=== PATIENT | female | born 1935 | race African-American/Black ===

== ENCOUNTER 2016-09-06 09:02 | Emergency (ER) | payer MEDICARE, MEDICAID ==
[~2016-09-06] VITALS: Ht 175.3 cm; Wt 56.7 kg
[~2016-09-06 09:02] MED LIST: ASPI-1035 PO; ATEN-42 PO
[2016-09-06 09:07] VITALS: BP 146/79
[2016-09-06] MEDS ORDERED: BACITRACIN ZINC OINT UDPKT TOP ONE (10:00)
== END 2016-09-06 11:00 | disposition home or self-care (01) ==
LOC: ER 09:03
DX: S81.811A Laceration without foreign body, right lower leg, initial encounter (principal); Z88.0 Allergy status to penicillin; Z79.82 Long term (current) use of aspirin; W22.8XXA Striking against or struck by other objects, initial encounter; Y93.89 Activity, other specified; Y92.89 Other specified places as the place of occurrence of the external cause; Y99.8 Other external cause status
CPT/HCPCS: 12002; 99283

== ENCOUNTER 2021-09-02 22:45 | Inpatient (IN) | payer MEDICARE, MEDICAID ==
[~2021-09-02] VITALS: Ht 175.3 cm; Wt 49.0 kg
[~2021-09-02 22:45] MED LIST changes: +AMLO10TA80 PO; -ASPI-1035 PO; +ASPI-1497 PO; +ATOR10TA PO; +CLOP75TA33 PO; +HYDR12.529 PO; +LINA5TAB PO; +METF-414 PO; +METO-396 PO; +PREG50CA PO; +SIMV-46 PO
[2021-09-02] MEDS ORDERED: SODIUM CHLORIDE 0.9% 1,000 ML IV ONE (23:15)
[2021-09-02 23:42] LABS: BASOPHILS % 0.3 % (0.0-2.0); EOSINOPHILS % 0.9 % (0.0-5.0); HEMATOCRIT. 36.7 % (36.0-48.0); HEMOGLOBIN. 11.8 g/dL (12.0-16.0); LYMPHOCYTES % 9.3 % (20.0-50.0); MEAN CORPUSCULAR HEMOGLOBIN 29.3 pg (28.0-32.0); MEAN CORPUSCULAR VOLUME 91.1 fL (81.0-99.0); MEAN PLATELET VOLUME 9.5 fl (7.4-10.4); NEUTROPHILS % 78.5 % (40.0-76.0); PLATELET 170 x1000/uL (130-400); RED BLOOD CELL COUNT 4.03 mill/uL (4.2-5.4); RED CELL DISTRIBUTION WIDTH 13.1 % (11.6-14.6)
[2021-09-02 23:50] LABS: CHLORIDE 102 mEq/L (98-107)
[2021-09-03 03:09] LABS: CLARITY URINE CLOUDY (CLEAR); COLOR URINE YELLOW (YELLOW); KETONES URINE TRACE (NEGATIVE); LEUKOCYTE ESTERASE URINE 2+ (NEGATIVE); NITRITE URINE NEGATIVE (NEGATIVE); OCCULT BLOOD URINE 2+ (NEGATIVE); PH URINE 5.5 (4.5-8.0); PROTEIN URINE 1+ (NEGATIVE); SPECIFIC GRAVITY URINE 1.017 (1.005-1.030)
[2021-09-03] MEDS ORDERED: DOCUSATE SODIUM 100MG CAPSULE PO PRN (07:30)
[2021-09-03] MEDS ORDERED: GUAIFENESIN 200MG/10ML SUGAR FREE UDC PO PRN (07:30)
[2021-09-03] MEDS ORDERED: KETOROLAC 15MG/ML VIAL IV PRN (07:30)
[2021-09-03] MEDS ORDERED: ACETAMINOPHEN 325MG TABLET PO PRN ×2 (07:30)
[2021-09-03] MEDS ORDERED: ENOXAPARIN 40MG/0.4ML SYR SUBCUT SCH (07:30)
[2021-09-03] MEDS ORDERED: ONDANSETRON HCL 4MG/2ML INJ IV PRN (07:30)
[2021-09-03] MEDS ORDERED: MAGNESIUM/ALUMINUM HYDROXIDE/SIMETHICONE 30ML UDC PO PRN (07:30)
[2021-09-03] MEDS ORDERED: NITROGLYCERIN 0.4MG TABLET SL SL PRN (07:30)
[2021-09-03] MEDS ORDERED: CLONIDINE 0.1MG TABLET PO PRN (07:30)
[2021-09-03] MEDS ORDERED: IPRATROPIUM/ALBUTEROL 0.5-3(2.5)MG/3ML NEB NEB PRN (07:30)
[2021-09-03 08:09] LABS: T4 FREE 1.12 ng/dL (0.76-1.46)
[2021-09-03 08:19] LABS: FOLIC ACID (FOLATE) SERUM 16.7 ng/mL (>5.38)
[2021-09-03] MEDS: CHOLECALCIFEROL (D3) 1000 UNIT TABLET PO SCH (09:00)
[2021-09-03] MEDS ORDERED: CEFTRIAXONE 1 G PREMIX 50 ML IV SCH (09:00)
[2021-09-03] MEDS ORDERED: ENOXAPARIN 30MG/0.3ML SYR SUBCUT SCH (09:00)
[2021-09-03 10:00] VITALS: BP 110/60
[2021-09-03 10:41] VITALS: BP 110/60
[2021-09-03 11:30] VITALS: BP 117/69
[2021-09-03] MEDS: ZINC SULFATE 220 MG ( 50 ) CAPSULE PO SCH (12:14)
[2021-09-03] MEDS: CLOPIDOGREL 75MG TABLET PO SCH (12:14)
[2021-09-03] MEDS: FAMOTIDINE 20MG TABLET PO SCH ×2 (12:14→22:10)
[2021-09-03] MEDS: ASCORBIC ACID 500 MG TABLET PO SCH ×2 (12:14→22:10)
[2021-09-03] MEDS ORDERED: NON FORMULARY PATIENT HOME MED XX SCH ×2 (12:45)
[2021-09-03] MEDS: AMLODIPINE 5MG TABLET PO SCH (12:45)
[2021-09-03] MEDS ORDERED: ASPIRIN 81MG TABLET PO SCH ×2 (12:45→13:00)
[2021-09-03] MEDS ORDERED: AMLODIPINE 5MG TABLET PO SCH (13:00)
[2021-09-03] MEDS ORDERED: ENOXAPARIN 30MG/0.3ML SYR SUBCUT NR (14:45)
[2021-09-03] MEDS ORDERED: DEXTROSE 50% WATER 50ML SYRINGE IV PRN (16:15)
[2021-09-03 16:38] LABS: CREATINE KINASE 159 IU/L (26-192); CREATINE KINASE MB FRACTION < 1.0 ng/mL (0.5-3.6)
[2021-09-03] MEDS: BLOOD SUGAR DIAGNOSTIC STRIP TEST SCH ×2 (17:40→21:14)
[2021-09-03] MEDS: CEFTRIAXONE 1,000 MG in DEXTROSE 5% WATER 50 ML IV SCH (17:40)
[2021-09-03 18:00] VITALS: BP 107/79
[2021-09-03] MEDS: INSULIN LISPRO 100 UNITS/ML SUBCUT SCH ×2 (18:10→21:00)
[2021-09-03] MEDS: SACUBITRIL/VALSARTAN 49MG/51MG TABLET PO SCH (18:13)
[2021-09-03] MEDS: APIXABAN 5 MG TABLET PO SCH (18:13)
[2021-09-03 21:00] VITALS: BP 103/56
[2021-09-03] MEDS ORDERED: CARVEDILOL 3.125 MG TABLET PO SCH (21:00)
[2021-09-03] MEDS ORDERED: ATORVASTATIN CALCIUM 20MG TABLET PO SCH (21:00)
[2021-09-03] MEDS: CARVEDILOL 3.125 MG TABLET PO SCH (21:00)
[2021-09-03] MEDS ORDERED: ZOLPIDEM TARTRATE 5MG TABLET PO PRN (21:00)
[2021-09-03] MEDS: ATORVASTATIN CALCIUM 20MG TABLET PO SCH (22:09)
[2021-09-04] VITALS: BP 130/55
[2021-09-04 00:53] LABS: CREATINE KINASE 82 IU/L (26-192)
[2021-09-04 00:54] LABS: CREATINE KINASE MB FRACTION < 1.0 ng/mL (0.5-3.6)
[2021-09-04 04:00] VITALS: BP 127/68
[2021-09-04 06:44] LABS: INR 1.1; PROTHROMBIN TIME 12.1 sec (9.6-11.0)
[2021-09-04 06:49] LABS: MEAN CORPUSCULAR HEMOGLOBIN 29.1 pg (28.0-32.0); MEAN PLATELET VOLUME 10.1 fl (7.4-10.4); PLATELET 184 x1000/uL (130-400); RED BLOOD CELL COUNT 4.14 mill/uL (4.2-5.4); RED CELL DISTRIBUTION WIDTH 13.1 % (11.6-14.6)
[2021-09-04 06:53] LABS: CHLORIDE 109 mEq/L (98-107)
[2021-09-04 06:59] LABS: PHOSPHORUS 2.4 mg/dL (2.5-4.9)
[2021-09-04 08:00] VITALS: BP 100/59
[2021-09-04] MEDS: INSULIN LISPRO 100 UNITS/ML SUBCUT SCH ×4 (08:10→22:03)
[2021-09-04] MEDS: BLOOD SUGAR DIAGNOSTIC STRIP TEST SCH ×4 (08:13→22:03)
[2021-09-04] MEDS: CARVEDILOL 3.125 MG TABLET PO SCH ×2 (08:25→21:56)
[2021-09-04] MEDS: AMLODIPINE 5MG TABLET PO SCH (08:25)
[2021-09-04] MEDS: SACUBITRIL/VALSARTAN 49MG/51MG TABLET PO SCH ×2 (08:50→18:20)
[2021-09-04] MEDS: CHOLECALCIFEROL (D3) 1000 UNIT TABLET PO SCH (08:50)
[2021-09-04] MEDS: ZINC SULFATE 220 MG ( 50 ) CAPSULE PO SCH (08:50)
[2021-09-04] MEDS: FAMOTIDINE 20MG TABLET PO SCH ×2 (08:50→21:56)
[2021-09-04] MEDS: ASCORBIC ACID 500 MG TABLET PO SCH ×2 (08:50→21:56)
[2021-09-04] MEDS: APIXABAN 5 MG TABLET PO SCH ×2 (08:50→18:20)
[2021-09-04] MEDS: CLOPIDOGREL 75MG TABLET PO SCH (08:50)
[2021-09-04] MEDS ORDERED: ENOXAPARIN 60MG/0.6ML SYR SUBCUT SCH (09:00)
[2021-09-04 12:00] VITALS: BP 122/54
[2021-09-04 13:39] LABS: *BARBITURATES SCREEN URINE NEGATIVE (NEGATIVE); *BENZODIAZEPINES SCREEN URINE PRESUMTIVE POSITIVE (NEGATIVE); *COCAINE SCREEN URINE NEGATIVE (NEGATIVE)
[2021-09-04 13:40] LABS: CANNABINOID URINE SCREEN NEGATIVE (NEGATIVE); METHADONE URINE SCREEN NEGATIVE (NEGATIVE); OPIATES URINE SCREEN PRESUMTIVE POSITIVE (NEGATIVE); PHENCYCLIDINE URINE SCREEN NEGATIVE (NEGATIVE)
[2021-09-04 13:41] LABS: *AMPHETAMINES SCREEN URINE NEGATIVE (NEGATIVE)
[2021-09-04 13:42] LABS: PLATELET ESTIMATE NORMAL
[2021-09-04] MEDS: CEFTRIAXONE 1,000 MG in DEXTROSE 5% WATER 50 ML IV SCH (15:28)
[2021-09-04 16:00] VITALS: BP 135/69
[2021-09-04 20:00] VITALS: BP 120/74
[2021-09-04] MEDS: ATORVASTATIN CALCIUM 20MG TABLET PO SCH (22:01)
[2021-09-05] VITALS: BP 105/63
[2021-09-05 04:00] VITALS: BP 155/49
[2021-09-05] MEDS: BLOOD SUGAR DIAGNOSTIC STRIP TEST SCH ×4 (06:59→21:00)
[2021-09-05 08:00] VITALS: BP 146/63
[2021-09-05] MEDS: INSULIN LISPRO 100 UNITS/ML SUBCUT SCH ×4 (08:10→22:29)
[2021-09-05] MEDS: CLOPIDOGREL 75MG TABLET PO SCH (08:54)
[2021-09-05] MEDS: ASCORBIC ACID 500 MG TABLET PO SCH ×2 (08:54→22:28)
[2021-09-05] MEDS: FAMOTIDINE 20MG TABLET PO SCH ×2 (08:54→22:28)
[2021-09-05] MEDS: APIXABAN 5 MG TABLET PO SCH ×2 (08:55→17:58)
[2021-09-05] MEDS: CARVEDILOL 3.125 MG TABLET PO SCH ×2 (08:55→21:00)
[2021-09-05] MEDS: CHOLECALCIFEROL (D3) 1000 UNIT TABLET PO SCH (08:55)
[2021-09-05] MEDS: ZINC SULFATE 220 MG ( 50 ) CAPSULE PO SCH (08:55)
[2021-09-05] MEDS: AMLODIPINE 5MG TABLET PO SCH (08:55)
[2021-09-05] MEDS: SACUBITRIL/VALSARTAN 49MG/51MG TABLET PO SCH ×2 (10:30→17:59)
[2021-09-05 12:00] VITALS: BP 155/56
[2021-09-05] MEDS: CEFTRIAXONE 1,000 MG in DEXTROSE 5% WATER 50 ML IV SCH (13:13)
[2021-09-05 16:00] VITALS: BP 158/59
[2021-09-05 20:00] VITALS: BP 106/60
[2021-09-05] MEDS: ATORVASTATIN CALCIUM 20MG TABLET PO SCH (22:28)
[2021-09-06] VITALS: BP 126/80
[2021-09-06 04:00] VITALS: BP 126/73
[2021-09-06] MEDS: BLOOD SUGAR DIAGNOSTIC STRIP TEST SCH ×4 (07:40→20:19)
[2021-09-06] MEDS: INSULIN LISPRO 100 UNITS/ML SUBCUT SCH ×4 (07:55→20:19)
[2021-09-06 08:00] VITALS: BP 158/78
[2021-09-06] MEDS: ASCORBIC ACID 500 MG TABLET PO SCH ×2 (08:24→20:19)
[2021-09-06] MEDS: CLOPIDOGREL 75MG TABLET PO SCH (08:24)
[2021-09-06] MEDS: APIXABAN 5 MG TABLET PO SCH ×2 (08:24→17:51)
[2021-09-06] MEDS: AMLODIPINE 5MG TABLET PO SCH ×3 (08:24→17:52)
[2021-09-06] MEDS: SACUBITRIL/VALSARTAN 49MG/51MG TABLET PO SCH ×2 (08:25→17:51)
[2021-09-06] MEDS: FAMOTIDINE 20MG TABLET PO SCH ×2 (08:25→20:18)
[2021-09-06] MEDS: CARVEDILOL 3.125 MG TABLET PO SCH (08:25)
[2021-09-06] MEDS: ZINC SULFATE 220 MG ( 50 ) CAPSULE PO SCH (08:25)
[2021-09-06] MEDS: CHOLECALCIFEROL (D3) 1000 UNIT TABLET PO SCH (08:25)
[2021-09-06 12:00] VITALS: BP 143/69
[2021-09-06] MEDS: CEFTRIAXONE 1,000 MG in DEXTROSE 5% WATER 50 ML IV SCH (15:31)
[2021-09-06 16:00] VITALS: BP 124/67
[2021-09-06 20:00] VITALS: BP 134/74
[2021-09-06] MEDS: CARVEDILOL 6.25 MG TABLET PO SCH (20:18)
[2021-09-06] MEDS: ATORVASTATIN CALCIUM 20MG TABLET PO SCH (20:18)
[2021-09-07] VITALS: BP 124/70
[2021-09-07 04:00] VITALS: BP 121/73
[2021-09-07 07:32] LABS: BASOPHILS % 0.2 % (0.0-2.0); EOSINOPHILS % 5.8 % (0.0-5.0); HEMATOCRIT. 38.9 % (36.0-48.0); HEMOGLOBIN. 12.6 g/dL (12.0-16.0); LYMPHOCYTES % 7.2 % (20.0-50.0); MEAN CORPUSCULAR HEMOGLOBIN 29.4 pg (28.0-32.0); MEAN CORPUSCULAR VOLUME 91.2 fL (81.0-99.0); MEAN PLATELET VOLUME 9.9 fl (7.4-10.4); MONOCYTES % 7.5 % (2.0-8.0); NEUTROPHILS % 79.3 % (40.0-76.0); PLATELET 222 x1000/uL (130-400); RED BLOOD CELL COUNT 4.27 mill/uL (4.2-5.4); RED CELL DISTRIBUTION WIDTH 13.6 % (11.6-14.6)
[2021-09-07 07:42] LABS: CHLORIDE 106 mEq/L (98-107)
[2021-09-07 08:00] VITALS: BP 131/69
[2021-09-07] MEDS: INSULIN LISPRO 100 UNITS/ML SUBCUT SCH ×2 (08:10→13:04)
[2021-09-07] MEDS: BLOOD SUGAR DIAGNOSTIC STRIP TEST SCH ×2 (08:14→12:34)
[2021-09-07] MEDS: CHOLECALCIFEROL (D3) 1000 UNIT TABLET PO SCH (10:05)
[2021-09-07] MEDS: ASCORBIC ACID 500 MG TABLET PO SCH (10:05)
[2021-09-07] MEDS: ZINC SULFATE 220 MG ( 50 ) CAPSULE PO SCH (10:06)
[2021-09-07] MEDS: FAMOTIDINE 20MG TABLET PO SCH (10:06)
[2021-09-07] MEDS: CLOPIDOGREL 75MG TABLET PO SCH (10:06)
[2021-09-07] MEDS: CARVEDILOL 6.25 MG TABLET PO SCH (10:07)
[2021-09-07] MEDS: APIXABAN 5 MG TABLET PO SCH (10:07)
[2021-09-07] MEDS: AMLODIPINE 5MG TABLET PO SCH (10:07)
[2021-09-07] MEDS: SACUBITRIL/VALSARTAN 49MG/51MG TABLET PO SCH (10:18)
[2021-09-07 12:00] VITALS: BP 128/65
[2021-09-07] MEDS: CEFTRIAXONE 1,000 MG in DEXTROSE 5% WATER 50 ML IV SCH (13:09)
[2021-09-07 14:31] VITALS: BP 128/65
== END 2021-09-07 15:35 | DRG 871 ==
LOC: ER 22:45 → 5EST 09-03 03:42 → EDBEDREQ 09-03 03:52 → EDBEDREQTM 09-03 03:52 → SUPCPDRO 09-03 07:21 → 7WST 09-03 16:35
PROVIDERS: ADMIT Internal Medicine; ATTEND Internal Medicine
DX: A41.51 Sepsis due to Escherichia coli [E. coli] (principal); E43 Unspecified severe protein-calorie malnutrition; G92.8 Other toxic encephalopathy; N17.0 Acute kidney failure with tubular necrosis; I82.411 Acute embolism and thrombosis of right femoral vein; N39.0 Urinary tract infection, site not specified; I50.42 Chronic combined systolic (congestive) and diastolic (congestive) heart failure; Z68.1 Body mass index [BMI] 19.9 or less, adult; L97.909 Non-pressure chronic ulcer of unspecified part of unspecified lower leg with unspecified severity; E11.51 Type 2 diabetes mellitus with diabetic peripheral angiopathy without gangrene; E78.00 Pure hypercholesterolemia, unspecified; E78.5 Hyperlipidemia, unspecified; I11.0 Hypertensive heart disease with heart failure; D50.9 Iron deficiency anemia, unspecified; I08.1 Rheumatic disorders of both mitral and tricuspid valves; I25.10 Atherosclerotic heart disease of native coronary artery without angina pectoris; I25.5 Ischemic cardiomyopathy; R53.81 Other malaise; M62.81 Muscle weakness (generalized); J44.9 Chronic obstructive pulmonary disease, unspecified; Z79.82 Long term (current) use of aspirin; I25.2 Old myocardial infarction; Z79.899 Other long term (current) drug therapy; Z87.891 Personal history of nicotine dependence; Z95.5 Presence of coronary angioplasty implant and graft; Z79.4 Long term (current) use of insulin; Z82.49 Family history of ischemic heart disease and other diseases of the circulatory system; Z90.710 Acquired absence of both cervix and uterus; Z88.0 Allergy status to penicillin; Z79.02 Long term (current) use of antithrombotics/antiplatelets
CPT/HCPCS: 36415; 70551; 71045; 78582; 80048; 80053; 80061; 80305; 81003; 82550; 82553; 82607; 82746; 82962; 83036; 83540; 83550; 83605; 83735; 83880; 84100; 84145; 84439; 84443; 84484; 85025; 85379; 87077; 87186; 93005; 93923; 93970; 97162; 99285; A9558; J0696; J1650; J1815; J7030; J7060